=== PATIENT | male | born 1965 | race Caucasian/White ===

== ENCOUNTER → 2024-02-02 10:14 | Outpatient (REF) | payer OTHER, SELFPAY ==
[2024-02-02 11:37] LABS: % Basophils 0.3 % (0-2); % Eosinophils 5.3 % (0-6); % Immature Granulocytes 0.4 % (0-0.5); % Lymphocytes 18.6 % (20.5-51.1); % Monocytes 6.1 % (1.7-9.3); % Neutrophils 69.3 % (42.2-75.2); Absolute Eosinophils 0.4 10^3/uL (0-0.7); Absolute Lymphocytes 1.4 10^3/uL (1.2-3.4); Absolute Monocytes 0.5 10^3/uL (0.1-0.6); Absolute Neutrophils 5.2 10^3/uL (1.4-6.5); Hematocrit 23.8 % (39.0-52.0); Hemoglobin 7.9 g/dL (13.0-18.0); Mean Corp Hgb Conc. 33.2 g/dL (33.0-37.0); Mean Corpuscular Hgb 30.7 pg (27.0-31.0); Mean Corpuscular Volume 92.6 fL (80.0-94.0); Mean Platelet Volume 10.2 fL (7.4-10.4); Nucleated Red Blood Cells % 0 % (-); Platelet Count 145 10^3/uL (130-400); Red Blood Cell Count 2.57 10^6/uL (4.70-6.10); Red Cell Dist. Width 13.2 % (11.5-14.5); White Blood Cell Count 7.5 10^3/uL (4.8-10.8)
[2024-02-04 14:01] LABS: 24 Hour Urine Total Volume 2300 mL; Total Protein, Urine 5708 mg/d (<=150); Ur Free Lambda Excretion/day 84.34 mg/d; Urine Collection Length 24 hr; Urine Free Kappa Excretion/Day 296.82 mg/d; Urine Free Kappa Light Chains 129.05 mg/L (0.00-32.90); Urine Free Lambda Light Chains 36.67 mg/L (0.00-3.79)
[2024-02-06 01:48] LABS: Albumin 3.97 g/dL (3.75-5.01); Alpha 1 Globulin 0.28 g/dL (0.19-0.46); Alpha 2 Globulin 0.59 g/dL (0.48-1.05); Free Kappa Light Chains,Quant 88.12 mg/L (3.30-19.40); Free Lambda Light Chains,Quant 44.21 mg/L (5.71-26.30); IgA 173 mg/dL (68-408); IgG 1277 mg/dL (768-1632); IgM 74 mg/dL (35-263); Immunofixation Electrophoresis IFE Done; Kappa/Lambda Fr Light Ratio 1.99 (0.26-1.65); Total Protein-Electrophoresis 6.9 g/dL (6.3-8.2)
== END ==
LOC: REG 10:14
PROVIDERS: ATTENDING PHYSICIAN Internal Medicine; FAMILY PHYSICIAN Internal Medicine
DX: R79.89 Other specified abnormal findings of blood chemistry (principal); D64.9 Anemia, unspecified
CPT/HCPCS: 36415; 82784; 83521; 84155; 84156; 84165; 85025; 86334; 86335

== ENCOUNTER → 2024-10-21 06:52 | Outpatient (REF) | payer OTHER, SELFPAY ==
[2024-10-21 07:56] LABS: % Basophils 0.4 % (0-2); % Immature Granulocytes 0.5 % (0-0.5); % Lymphocytes 19.6 % (20.5-51.1); % Monocytes 7.6 % (1.7-9.3); % Neutrophils 65.9 % (42.2-75.2); Absolute Eosinophils 0.5 10^3/uL (0-0.7); Absolute Lymphocytes 1.7 10^3/uL (1.2-3.4); Absolute Monocytes 0.6 10^3/uL (0.1-0.6); Absolute Neutrophils 5.6 10^3/uL (1.4-6.5); Hematocrit 23.8 % (39.0-52.0); Hemoglobin 8.2 g/dL (13.0-18.0); Mean Corp Hgb Conc. 34.5 g/dL (33.0-37.0); Mean Corpuscular Hgb 30.9 pg (27.0-31.0); Mean Corpuscular Volume 89.8 fL (80.0-94.0); Nucleated Red Blood Cells % 0 % (-); Platelet Count 168 10^3/uL (130-400); Red Blood Cell Count 2.65 10^6/uL (4.70-6.10); Red Cell Dist. Width 12.4 % (11.5-14.5); White Blood Cell Count 8.4 10^3/uL (4.8-10.8)
[2024-10-21 08:50] LABS: ALT (SGPT) 23 U/L (0-50); AST (SGOT) 20 U/L (17-59); Alkaline Phosphatase 45 U/L (38-126); Blood Urea Nitrogen 73 mg/dl (9-20); Calcium 8.6 mg/dl (8.4-10.2); Carbon Dioxide 21 mmol/L (22-30); Chloride 110 mmol/L (98-107); Glucose 107 mg/dl (70-99); HDL Cholesterol 34 mg/dl; LDL Cholesterol, Calculated 142 mg/dl; Potassium 4.9 mmol/L (3.5-5.1); Sodium 145 mmol/L (135-145); Total Bilirubin 0.3 mg/dl (0.2-1.3); Total Cholesterol 191 mg/dl (50-199); Total Protein 7.1 g/dl (6.3-8.2); Triglyceride 76 mg/dl (10-149); Very Low Density Lipoprotein 15 mg/dl (0-30); eGFR 14.09
[2024-10-21 08:52] LABS: Microalbumin, Random Urine > 57.0 mg/dl (0.6-1.7)
[2024-10-21 09:03] LABS: PSA, Total - Screen 2.25 ng/ml (0.0-4.0)
[2024-10-21 09:37] LABS: Glycohemoglobin (HgbA1c) 4.5 % (4.0-5.6)
== END ==
LOC: REG 06:52
PROVIDERS: ATTENDING PHYSICIAN Internal Medicine
DX: E11.22 Type 2 diabetes mellitus with diabetic chronic kidney disease (principal); Z09 Encounter for follow-up examination after completed treatment for conditions other than malignant neoplasm; Z12.5 Encounter for screening for malignant neoplasm of prostate; E78.2 Mixed hyperlipidemia; N18.5 Chronic kidney disease, stage 5
CPT/HCPCS: 36415; 80053; 80061; 82043; 82570; 83036; 85025; G0103

== ENCOUNTER → 2024-12-20 07:38 | Outpatient (REF) | payer OTHER, SELFPAY ==
[2024-12-20 09:18] LABS: HDL Cholesterol 32 mg/dl; LDL Cholesterol, Calculated 137 mg/dl; Total Cholesterol 186 mg/dl (50-199); Triglyceride 86 mg/dl (10-149); Very Low Density Lipoprotein 17 mg/dl (0-30)
== END ==
LOC: REG 07:38
PROVIDERS: ATTENDING PHYSICIAN Internal Medicine; FAMILY PHYSICIAN Internal Medicine
DX: E11.22 Type 2 diabetes mellitus with diabetic chronic kidney disease (principal); N18.5 Chronic kidney disease, stage 5; R93.1 Abnormal findings on diagnostic imaging of heart and coronary circulation
CPT/HCPCS: 36415; 80061

== ENCOUNTER → 2025-07-07 07:40 | Outpatient (REF) | payer OTHER, SELFPAY ==
[2025-07-07 08:32] LABS: Hematocrit 27.6 % (39.0-52.0); Hemoglobin 8.9 g/dL (13.0-18.0); Mean Corp Hgb Conc. 32.2 g/dL (33.0-37.0); Mean Corpuscular Volume 91.4 fL (80.0-94.0); Nucleated Red Blood Cells % 0 % (-); Platelet Count 158 10^3/uL (130-400); Red Cell Dist. Width 13.2 % (11.5-14.5)
[2025-07-07 08:33] LABS: Urine Character Clear (Clear)
[2025-07-07 08:41] LABS: INR 1.83; PT 21.3 Sec (11.4-14.6)
[2025-07-07 08:42] LABS: APTT 36.0 Sec (23.4-35.0)
[2025-07-07 08:53] LABS: Urine White Cell 0-2 /HPF (0-5)
[2025-07-07 08:54] LABS: Glycohemoglobin (HgbA1c) 5.0 % (4.0-5.6)
[2025-07-07 09:11] LABS: Microalb - Urine Creatinine 59.900 mg/dl
[2025-07-07 09:17] LABS: Blood Urea Nitrogen 54 mg/dl (9-20); Calcium 8.6 mg/dl (8.4-10.2); Carbon Dioxide 22 mmol/L (22-30); Chloride 113 mmol/L (98-107); Glucose 92 mg/dl (70-99); Potassium 5.2 mmol/L (3.5-5.1); Sodium 145 mmol/L (135-145); eGFR 13.63
[2025-07-07 10:13] LABS: Microalbumin, Random Urine > 57.0 mg/dl (0.6-1.7)
== END ==
LOC: REG 07:40
PROVIDERS: ATTENDING PHYSICIAN Otolaryngology Sleep Medicine; FAMILY PHYSICIAN Internal Medicine
DX: A49.01 Methicillin susceptible Staphylococcus aureus infection, unspecified site (principal); R30.0 Dysuria; Z01.818 Encounter for other preprocedural examination; E11.22 Type 2 diabetes mellitus with diabetic chronic kidney disease
CPT/HCPCS: 36415; 80048; 81003; 81015; 82043; 82570; 83036; 85025; 85610; 85730

== ENCOUNTER → 2025-07-28 07:16 | Outpatient (REF) | payer OTHER, SELFPAY ==
[2025-07-28 08:02] LABS: Urine Character Clear (Clear)
[2025-07-28 08:16] LABS: Urine White Cell 30-40 /HPF (0-5)
[2025-07-28 08:17] LABS: Urine Urothelial Cell 0-2 /LPF (FEW)
== END ==
LOC: REG 07:16
PROVIDERS: FAMILY PHYSICIAN Internal Medicine
DX: A49.01 Methicillin susceptible Staphylococcus aureus infection, unspecified site (principal)
CPT/HCPCS: 36415; 81003; 81015; 87086; 87147; 87186